=== PATIENT | male | born 1960 | race Caucasian/White ===

== ENCOUNTER 2024-02-28 15:26 | Emergency (ER) | payer MEDICARE ==
[2024-02-28 15:42] VITALS: TEMP 98
--- NOTE | 2024-02-28 15:50 | ED ---
General Adult HPI - General Chief complaint: Shortness of Breath Stated complaint: NITZA Time Seen by Provider: 02/28/24 15:30 Source: patient, EMS, RN notes reviewed, old records reviewed Mode of arrival: EMS - History of Present Illness Initial comments: Patient is a 63-year-old male with past medical history remarkable for hypertension, COPD who presents emergency department complaining of running out of his inhalers at home for the last 3 days and a COPD exacerbation. States he has been without either of his inhalers for 2 to 3 days. Did not start having the effects of a little bit difficulty in breathing until today. Called EMS. They provided him with a breathing treatment. He states he already feels improved. He denies any worsening cough. Has normal sputum production which is unchanged from baseline. Denies any chest pain, abdominal pain, nausea, vomiting. Denies any fevers or chills. States he has his other medications. 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 Presents seeking refills for his inhalers as well as treatment for COPD. Denies any known sick contacts. No other acute complaints at this time.Patient is not on oxygen at home. Was found to be 92% on room air by EMS. - Related Data Home Medications Medication Instructions Recorded Confirmed Albuterol Sulfate [Albuterol 1 puff PO RT-Q4H PRN 02/28/24 02/28/24 Sulfate Hfa] Budesonide/Formoterol Fumarate 2 puff INHALATION RT-BID 02/28/24 02/28/24 [Symbicort 80-4.5 Mcg Inhaler] Previous Rx's Medication Instructions Recorded Albuterol Sulfate [Albuterol 1 puff PO Q4-6H #8.5 gm 02/28/24 Sulfate Hfa] Azithromycin [Zithromax Z Pack] 1 tab PO DIRECTED #6 tab 02/28/24 Budesonide/Formoterol Fumarate 2 puff INHALATION BID #1 each 02/28/24 [Symbicort 80-4.5 Mcg Inhaler] predniSONE [Deltasone] 40 mg PO DAILY 5 Days #10 tab 02/28/24 Allergies Allergy/AdvReac Type Severity Reaction Status Date / Time No Known Allergies Allergy Verified 02/28/24 15:43 Review of Systems ROS Statement: Those systems with pertinent positive or pertinent negative responses have been documented in the HPI. Review of Systems: CONST: Denies fever EYES: Denies blurry vision ENT: Denies nasal congestion C/V: Denies Chest pain RESP: Endorses wheezing GI: Denies abdominal pain : Denies dysuria SKIN: Denies rash. MSK: Denies joint pain. NEURO: Denies headache ROS Other: All systems not noted in ROS Statement are negative. Past Medical History Additional Past Medical History / Comment(s): depression- not on medication History of Any Multi-Drug Resistant Organisms: None Reported Past Psychological History: Depression Smoking Status: Current every day smoker Past Alcohol Use History: None Reported Past Drug Use History: None Reported General Exam - General Exam Comments Initial Comments: General: Appears in no acute distress. HEAD: Normal with no signs of head trauma. EYES: EOMI ENT: Hearing grossly intact, normal oropharynx. RESPIRATORY: Bilateral end expiratory wheezing. Saturating well on room air. No significant increased work of breathing. C/V: Regular rate and rhythm. S1 and S2 auscultated, no edema, peripheral pulses 2+ and intact throughout ABD: Abd is soft, nontender, nondistended EXT: No obvious deformity. SKIN: No rashes or lesions observed on exposed skin. NEURO: Alert and oriented x 4. Course Vital Signs 02/28/24 02/28/24 02/28/24 15:32 16:08 16:23 Temperature 98.0 F Pulse Rate 95 88 87 Respiratory 22 Rate Blood Pressure 180/120 O2 Sat by Pulse 95 Oximetry 02/28/24 02/28/24 02/28/24 17:07 17:22 17:32 Temperature Pulse Rate 82 86 75 Respiratory 20 Rate Blood Pressure 173/117 O2 Sat by Pulse 92 L Oximetry 02/28/24 17:57 Temperature 98.0 F Pulse Rate 84 Respiratory 18 Rate Blood Pressure 166/87 O2 Sat by Pulse 94 L Oximetry Medical Decision Making - Medical Decision Making Was pt. sent in by a medical professional or institution (, PA, PHARMACY RESOURCE TECH, urgent care, hospital, or fpc...) When possible be specific @ -No Did you speak to anyone other than the patient for history (EMS, parent, family, police, friend...)? What history was obtained from this source @ -No Did you review nursing and triage notes (agree or disagree)? Why? @ -I reviewed and agree with nursing and triage notes Were old charts reviewed (outside hosp., previous admission, EMS record, old EKG, old radiological studies, urgent care reports/EKG's, fpc records)? Report findings @ -No old charts were reviewed Differential Diagnosis (chest pain, altered mental status, abdominal pain women, abdominal pain men, vaginal bleeding, weakness, fever, dyspnea, syncope, headache, dizziness, GI bleed, back pain, seizure, CVA, palpatations, mental health, musculoskeletal)? @ -COPD, pneumonia, bronchitis. This list is not all inclusive. EKG interpreted by me (3pts min.). @ -None done X-rays interpreted by me (1pt min.). @ -Chest x-ray shows findings consistent with COPD. No obvious infiltrate or other acute cardiopulmonary process. CT interpreted by me (1pt min.). @ -None done U/S interpreted by me (1pt. min.). @ -None done What testing was considered but not performed or refused? (CT, X-rays, U/S, labs)? Why? @ -Considered for COVID and flu testing however patient declines at this time. What meds were considered but not given or refused? Why? @ -None Did you discuss the management of the patient with other professionals (professionals i.e. , PA, PHARMACY RESOURCE TECH, lab, RT, psych nurse, director social, hand model, teacher, port patrol officer, family service caseworker)? Give summary @ -No Was smoking cessation discussed for >3mins.? @ -No Was critical care preformed (if so, how long)? @ -No Were there social determinants of health that impacted care today? How? (Homelessness, low income, unemployed, alcoholism, drug addiction, transportation, low edu. Level, literacy, decrease access to med. care, fpc, rehab)? @ -No Was there de-escalation of care discussed even if they declined (Discuss DNR or withdrawal of care, Hospice)? DNR status @ -No What co-morbidities impacted this encounter? (DM, HTN, Smoking, COPD, CAD, Cancer, CVA, ARF, Chemo, Hep., AIDS, mental health diagnosis, sleep apnea, morbid obesity)? @ -COPD Was patient admitted / discharged? Hospital course, mention meds given and route, prescriptions, significant lab abnormalities, going to OR and other pertinent info. @ -Based on the patient's presentation and physical exam, patient presents with what appears to be a COPD exacerbation probably because he has been without his inhalers for the last 3 days due to issues with obtaining new prescription. He has no other acute complaints at this time. Is resting comfortably at this time. Patient will be given IV steroids, breathing treatments, and we will obtain chest x-ray and basic labs. I did offer COVID and flu testing which patient declined. He states he just needs new inhalers and like to go home. We will work on obtaining his prescriptions from our pharmacy prior to them closing so he does not have to arrange for transport to get his refills. He was in agreement this plan. Vitals are within acceptable limits. Patient is on room air. Does not require oxygen at home. Chest x-ray shows no obvious acute cardiopulmonary process. EKG shows no signs of acute ischemia. Laboratory studies unremarkable. On reevaluation, patient is still slightly wheezy but improved. Oxygen saturations remain within acceptable limits. No respiratory distress. Discussed the workup with the patient. I did offer observation admission considering his age and the fact that he lives alone however he would like to go home. I believe this is reasonable as vitals are within acceptable limits. He will be given 1 additional breathing treatment prior to discharge. We were able to arrange for our outpatient pharmacy to deliver his prescriptions to bedside. He will be discharged home on prednisone, azithromycin, as well as both of his normal home inhalers. Patient was in agreement this plan. Strict return precautions discussed. I instructed the patient to follow up with their PCP in the next 1-3 days. I explained that the patient should return to the emergency department if they experience any worsening symptoms. Strict return precautions were discussed with the patient. The patient expressed understanding of these instructions. I answered all questions that the patient had. The patient was discharged home in good condition with their prescriptions and follow up information. Patient was hypertensive. I did discuss with the patient and he states he thinks he may have forgotten to take his blood pressure meds this morning. I did offer blood pressure medication however he declined. Was in agreement with 1 more breathing treatment but would like to go home. I believe this is reasonable at this time. He is asymptomatic in terms of his hypertension. Final blood pressure prior to discharge was improved. Undiagnosed new problem with uncertain prognosis? @ -No Drug Therapy requiring intensive monitoring for toxicity (Heparin, Nitro, Insulin, Cardizem)? @ -No Were any procedures done? @ -No Diagnosis/symptom? @ -COPD, Hypertension Acute, or Chronic, or Acute on Chronic? @ -Acute on chronic Uncomplicated (without systemic symptoms) or Complicated (systemic symptoms)? @ -Complicated Side effects of treatment? @ -None Exacerbation, Progression, or Severe Exacerbation] @ -Exacerbation Poses a threat to life or bodily function? @ -Unlikely at this time - Lab Data Result diagrams: 02/28/24 16:00 02/28/24 16:00 Lab Results 02/28/24 02/28/24 Range/Units 16:00 16:00 WBC 5.8 (3.8-10.6) k/uL RBC 5.03 (4.30-5.90) m/uL Hgb 14.5 (13.0-17.5) gm/dL Hct 43.7 (39.0-53.0) % MCV 86.8 (80.0-100.0) fL MCH 28.9 (25.0-35.0) pg MCHC 33.3 (31.0-37.0) g/dL RDW 13.9 (11.5-15.5) % Plt Count 169 (150-450) k/uL MPV 8.5 Neutrophils % 74 % Lymphocytes % 15 % Monocytes % 6 % Eosinophils % 3 % Basophils % 1 % Neutrophils # 4.3 (1.3-7.7) k/uL Lymphocytes # 0.9 L (1.0-4.8) k/uL Monocytes # 0.3 (0-1.0) k/uL Eosinophils # 0.2 (0-0.7) k/uL Basophils # 0.0 (0-0.2) k/uL Sodium 142 (137-145) mmol/L Potassium 4.1 (3.5-5.1) mmol/L Chloride 105 (98-107) mmol/L Carbon Dioxide 28 (22-30) mmol/L Anion Gap 9 mmol/L BUN 11 (9-20) mg/dL Creatinine 1.07 (0.66-1.25) mg/dL Est GFR (CKD-EPI)AfAm 87 (>60 ml/min/1.73 sqM) Est GFR (CKD-EPI)NonAf 75 (>60 ml/min/1.73 sqM) Glucose 107 H (74-99) mg/dL Calcium 9.8 (8.4-10.2) mg/dL - EKG Data -: EKG Interpreted by Me EKG Comments: 12-lead Electrocardiogram Interpretation Note EKG was reviewed and interpreted by myself. 12-lead ECG performed at 1615 is interpreted by me as revealing normal sinus rhythm with PACs at a rate of 75 beats per minute. [place] is normal. [place] interval is 143 ms, QRS duration is 106 ms, QTc is 390 ms.. There were no ST or T wave abnormalities to suggest myocardial ischemia or injury. R wave progression across the precordium was satisfactory. By my interpretation this EKG is non-diagnostic for acute ischemia. Disposition Clinical Impression: COPD (chronic obstructive pulmonary disease), Hypertension Disposition: HOME SELF-CARE Condition: Good Instructions (If sedation given, give patient instructions): COPD (Chronic Obstructive Pulmonary Disease) (ED) Prescriptions: Albuterol Sulfate [Albuterol Sulfate Hfa] 1 puff PO Q4-6H #8.5 gm predniSONE [Deltasone] 40 mg PO DAILY 5 Days #10 tab Budesonide/Formoterol Fumarate [Symbicort 80-4.5 Mcg Inhaler] 2 puff INHALATION BID #1 each Azithromycin [Zithromax Z Pack] 1 tab PO DIRECTED #6 tab Is patient prescribed a controlled substance at d/c from ED?: No Referrals: Sara Colbert MD [Primary Care Provider] - 1-2 days Time of Disposition: 17:00
--- NOTE | 2024-02-28 16:01 | XR ---
EXAMINATION TYPE: XR chest 2V DATE OF EXAM: 02/28/2024 COMPARISON: 08/26/2023 INDICATION: Cough TECHNIQUE: Frontal and lateral views of the chest are obtained. FINDINGS: The heart size is normal. The pulmonary vasculature is normal. The lungs are clear. Hyperinflation flattening the diaphragms is present IMPRESSION: 1. No acute pulmonary process. 2. Hyperinflation [facility], Workstation: [facility], 02/28/2024 3:59 PM
[2024-02-28] MEDS: IPRATROPIUM-ALBUTEROL 3 ML NEB INHALATION STA ×2 (16:07→17:22)
[2024-02-28] MEDS: methylPREDNISolone SOD SUCCI 125 MG/2 ML VIAL IV STA (16:18)
[2024-02-28 16:20] LABS: Basophils % (A) 1 %; Eosinophils # (A) 0.2 k/uL (0-0.7); Eosinophils % (A) 3 %; HCT 43.7 % (39.0-53.0); HGB 14.5 gm/dL (13.0-17.5); Lymphocytes # (A) 0.9 k/uL (1.0-4.8); Lymphocytes % (A) 15 %; MCH 28.9 pg (25.0-35.0); MCHC 33.3 g/dL (31.0-37.0); MCV 86.8 fL (80.0-100.0); Mean Platelet Volume 8.5; Monocytes # (A) 0.3 k/uL (0-1.0); Monocytes % (A) 6 %; Neutrophils # (A) 4.3 k/uL (1.3-7.7); Neutrophils % (A) 74 %; Platelet Count 169 k/uL (150-450); RBC 5.03 m/uL (4.30-5.90); RDW 13.9 % (11.5-15.5); WBC 5.8 k/uL (3.8-10.6)
[2024-02-28 16:38] LABS: African American GFR (CKD) 87 (>60 ml/min/1.73 sqM); Anion Gap 9 mmol/L; Blood Urea Nitrogen 11 mg/dL (9-20); Calcium 9.8 mg/dL (8.4-10.2); Carbon Dioxide 28 mmol/L (22-30); Chloride 105 mmol/L (98-107); Glucose 107 mg/dL (74-99); Non-African American GFR(CKD) 75 (>60 ml/min/1.73 sqM); Potassium 4.1 mmol/L (3.5-5.1); Sodium 142 mmol/L (137-145)
[2024-02-28 17:59] VITALS: BP 166/87; PULSE 84; RESP 18
== END 2024-02-28 17:58 | disposition home or self-care (01) ==
LOC: EC 15:26
CPT/HCPCS: 36415; 71046; 80048; 85025; 93005; 94640; 96374; 99285